=== PATIENT | male | born 1990 | race Caucasian/White ===

== ENCOUNTER 2020-10-03 00:40 | Emergency (ER) | payer SELFPAY ==
[2020-10-03] VITALS (8 sets, daily range): BP systolic 135–141; BP diastolic 74–83; PULSE 79–89; RESP 18; TEMP 38.2; O2SAT 93–97; BMI 39.1
[2020-10-03 01:04] LABS: COVID19 -Nasal RAPID Negative (Negative)
--- NOTE | 2020-10-03 01:13 | ED.SYNCOPE ---
HPI - Syncope General Chief Complaint: Syncope Stated Complaint: headache and abdominal pain Time Seen by Provider: 10/03/20 01:13 Source: patient Mode of arrival: Ambulatory Limitations: no limitations History of Present Illness HPI narrative: The patient has been ill for about 4 days. He Initially had diarrhea. He has since then headache, and sore throat. He denies significant cough. His headache continues. He has fever. He has decreased appetite with abdominal pain. Pain is in the upper abdomen, but no nausea vomiting. There is no pain radiating to his back. He has no chronic GI illness. He has no urinary complaints. He has no rash. He has not been around others with similar complaints. He has not been exposed to COVID. Related Data Home Medications Medication Instructions Recorded Confirmed naproxen sodium 220 mg tablet 220 mg PO PRN #0 09/28/11 Previous Rx's Medication Instructions Recorded amoxicillin 500 mg capsule 500 mg PO TID #30 cap 10/03/20 Allergies Allergy/AdvReac Type Severity Reaction Status Date / Time Sulfa (Sulfonamide Allergy Intermediate DROWZINESS/EYE Verified 10/03/20 01:01 Antibiotics) ISSUES [SULFA (SULFONAMIDE ANTIBIOTICS)] Review of Systems Constitutional Constitutional: Reports as per HPI, Reports fatigue, Reports fever(s), Reports headache(s) and Reports malaise Eyes Eyes: Denies irritation ENT Ears, Nose, Mouth, and Throat: Denies vertigo, Denies dizziness, Reports headache(s), Reports neck pain, Denies sinus pressure and Reports sore throat Cardiovascular Cardiovascular: Denies chest pain, Denies rapid heart rate and Denies pedal edema Respiratory Respiratory: Denies chest congestion, Denies cough and Denies wheezing Gastrointestinal Gastrointestinal: Reports as per HPI Genitourinary Genitourinary: Denies dysuria Musculoskeletal Musculoskeletal: Denies back pain and Reports neck pain Integumentary/Breasts Skin/Breast: Denies rash and Denies sores Neurologic Neurologic: Denies confusion, Denies vertigo, Denies dizziness and Reports headache(s) Psychiatric Psychiatric: Denies confusion Endocrine Endocrine: Reports fatigue Allergic/Immunologic Allergic/Immunologic: Denies wheezing Patient History Social History Smoking Status: Never smoker Smoking Status: Never smoker tobacco type: smokeless tobacco Substance Use Type: does not use Exam Initial Vital Signs Initial Vital Signs: Vital Signs Temperature 100.8 F H 10/03/20 01:01 Pulse Rate 81 10/03/20 01:01 Respiratory Rate 18 10/03/20 01:01 Blood Pressure 141/83 H 10/03/20 01:01 Pulse Oximetry 96 10/03/20 01:01 Const General: cooperative, healthy appearing, well developed and well groomed [facility] Head: normocephalic, atraumatic and other (No palpable sinus tenderness.) Ears: TM's normal bilaterally Nose: nares normal Mouth: oral mucosae normal Throat: abnormal tonsil (Bilateral tonsillar erythema with exudate) Eyes Conjunctivae: conjunctivae normal Pupils: PERRL EOM: EOM intact bilaterally Neck Neck: full ROM, no meningeal signs and No lymphadenopathy Chest Chest: normal inspection of the chest Resp Auscultation: clear to auscultation bilaterally Cardio Rate: regular rate Rhythm: regular rhythm Heart Sounds: S1 normal, S2 normal and no murmurs GI Inspection: normal to inspection Other: Obese. Mild tenderness in the right upper quadrant without distention, guarding rebound. No masses. Normal bowel sounds Back/Spine/Pelvis Back: No CVA tenderness Skin General: No erythema and No pallor Lesions: no lesions Rashes: no rashes Neuro General: patient alert, patient awake, patient oriented x3 and no focal motor deficits Extrem General: normal to inspection, full ROM, no calf tenderness and amputation noted Psych Mental Status: mental status grossly normal Course Orders Ordered: ED Orders 10/03/20 EKG-12 Lead Stat 10/03/20 00:45 COVID19 -Nasal swab/Pre-Proc Stat 10/03/20 00:50 Complete Blood Count AUTO DIFF Stat Comprehensive Metabolic Panel Stat Lipase Stat Discontinued Medications Sodium Chloride (Normal Saline 0.9%) 1,000 mls @ 1,000 mls/hr IV BOLUS ONE Stop: 10/03/20 02:15 Last Admin: 10/03/20 01:55 Dose: 1,000 mls/hr Documented by: SAPPHIRE Vital Signs Vital signs: Vital Signs - 8 hr 10/03/20 01:01 Temperature 100.8 F H Pulse Rate 81 Respiratory Rate 18 Blood Pressure 141/83 H Pulse Oximetry 96 MDM - Syncope Lab Data Result diagrams: 10/03/20 00:50 10/03/20 00:50 Labs: Lab Results 07/12/21 07/12/21 07/12/21 Range/Units 00:45 00:50 00:50 WBC 10.9 (4.5-11.0) X10^3/uL RBC 5.23 (4.5-5.9) X10^6/uL Hgb 15.0 (13.5-17.5) g/dL Hct 45.4 (41-53) % MCV 86.8 (80-100) fL MCH 28.7 (26-34) PG MCHC 33.1 (30-36) % RDW 13.3 (11.6-14.8) % Plt Count 241 (150-400) X10^3/uL Neut % (Auto) 60.6 (50-75) % Lymph % (Auto) 23.3 L (25-40) % [place] % (Auto) 14.4 H (3-14) % Eos % (Auto) 0.4 L (2-4) % Baso % (Auto) 1.3 (0-2) % Neut # (Auto) 6600 (9146-9986) /uL Lymph # (Auto) 2500 (7057-2263) /uL [place] # (Auto) 1600 H (0-900) /uL Eos # (Auto) 0 (0-450) /uL Baso # (Auto) 100 (0-100) /uL Sodium 138 (137-145) mmol/L Potassium 4.2 (3.4-5.1) mmol/L Chloride 103 (98-107) mmol/L Carbon Dioxide 27 (22-32) mmol/L BUN 12 (9-20) mg/dL Creatinine 1.18 (0.66-1.25) mg/dL Estimated GFR > 60.0 (>60) mL/min BUN/Creatinine Ratio 10.2 (6-22) Glucose 108 H (70-100) mg/dL Calcium 9.5 (8.4-10.2) mg/dL Total Bilirubin 0.7 (0.2-1.3) mg/dL AST 36 (17-59) IU/L ALT 72 H (<50) IU/L Alkaline Phosphatase 50 (38-126) U/L Total Protein 7.7 (6.3-8.2) g/dL Albumin 4.4 (3.5-5.0) g/dL Globulin 3.3 (1.7-4.1) g/dL Albumin/Globulin Ratio 1.3 (1.0-2.8) Lipase 78 (23-300) U/L SARS-CoV-2 (PCR) Negative (Negative) Point of Care Testing Rapid Strep A Negative MDM Narrative Medical decision making narrative: Despite being ill for several days, the patient presents with severe sore throat. Tonsils demonstrate erythema and exudate. His workup is otherwise relatively benign. I will treat him with amoxicillin for exudative pharyngitis despite the negative rapid strep. Discharge Plan Departure Patient Disposition: Home Clinical Impression: Exudative pharyngitis Instructions: Sore Throat Activity Restrictions/Additional Instructions: Take Tylenol or Advil as needed for pain and fever. Be sure you are drinking plenty fluids remain well hydrated. Amoxicillin 3 times daily as prescribed. No work for 3 days. If you become worse over the next 3 days you should return to the ER. Prescriptions: New amoxicillin 500 mg capsule 500 mg PO TID Qty: 30 RF: 0 No Action naproxen sodium 220 MG tablet 220 mg PO PRN Qty: 0 RF: 0
[2020-10-03 01:28] LABS: Alanine Aminotransferase 72 IU/L (<50); Albumin 4.4 g/dL (3.5-5.0); Albumin Globulin Ratio 1.3 (1.0-2.8); Alkaline Phosphatase 50 U/L (38-126); Aspartate Aminotransferase 36 IU/L (17-59); BUN Creatinine Ratio 10.2 (6-22); Bilirubin Total 0.7 mg/dL (0.2-1.3); Blood Urea Nitrogen 12 mg/dL (9-20); Calcium 9.5 mg/dL (8.4-10.2); Carbon Dioxide 27 mmol/L (22-32); Chloride 103 mmol/L (98-107); Estimated Glomerular Filt Rate > 60.0 mL/min (>60); Globulin 3.3 g/dL (1.7-4.1); Glucose 108 mg/dL (70-100); HEMOLYSIS < 15 (0-50); Lipase 78 U/L (23-300); Potassium 4.2 mmol/L (3.4-5.1); Sodium 138 mmol/L (137-145); Total Protein 7.7 g/dL (6.3-8.2)
[2020-10-03 01:35] LABS: Add Manual Diff / Slide Review NO; Basophils Absolute Auto 100 /uL (0-100); Basophils Percent Auto 1.3 % (0-2); Eosinophils Absolute Auto 0 /uL (0-450); Eosinophils Percent Auto 0.4 % (2-4); Hematocrit 45.4 % (41-53); Lymphocytes Absolute Auto 2500 /uL (1100-4500); Lymphocytes Percent Auto 23.3 % (25-40); Mean Corpuscular HGB Conc 33.1 % (30-36); Mean Corpuscular Hemoglobin 28.7 PG (26-34); Mean Corpuscular Volume 86.8 fL (80-100); Monocytes Absolute Auto 1600 /uL (0-900); Monocytes Percent Auto 14.4 % (3-14); Neutrophils Absolute Auto 6600 /uL (1500-7000); Neutrophils Percent Auto 60.6 % (50-75); Platelet Count 241 X10^3/uL (150-400); Red Blood Cell Count 5.23 X10^6/uL (4.5-5.9); Red Cell Distribution Width 13.3 % (11.6-14.8); White Blood Cell Count 10.9 X10^3/uL (4.5-11.0)
[2020-10-03] MEDS: SODIUM CHLORIDE 0.9% 1,000 ML 1000 ML IV (01:55)
[2020-10-03] MEDS: AMOXICILLIN 250 MG CAPSULE 500 MG PO (03:55)
== END 2020-10-03 04:25 | disposition home or self-care (01) ==
PROVIDERS: Emergency Provider Emergency Medicine
DX: J02.9 Acute pharyngitis, unspecified (principal); R51.9 Headache, unspecified; Z20.822 Contact with and (suspected) exposure to COVID-19
CPT/HCPCS: 36415; 80053; 83690; 85025; 87070; 87635; 87880; 93005; 93010; 96360; 96361; 99284; C9803

== ENCOUNTER → 2022-10-02 17:19 | Outpatient (ROUT) | payer SELFPAY ==
[2022-10-02 17:26] LABS: Hematocrit 41.2 % (41-53); Mean Corpuscular HGB Conc 33.9 % (30-36); Mean Corpuscular Hemoglobin 29.3 PG (26-34); Mean Corpuscular Volume 86.4 fL (80-100); Platelet Count 261 X10^3/uL (150-400); Red Blood Cell Count 4.77 X10^6/uL (4.5-5.9); Red Cell Distribution Width 13.5 % (11.6-14.8); White Blood Cell Count 8.3 X10^3/uL (4.5-11.0)
[2022-10-02 17:50] LABS: Alanine Aminotransferase 60 IU/L (<50); Albumin 4.1 g/dL (3.5-5.0); Albumin Globulin Ratio 1.3 (1.0-2.8); Alkaline Phosphatase 49 U/L (38-126); Aspartate Aminotransferase 33 IU/L (17-59); BUN Creatinine Ratio 13.7 (6-22); Bilirubin Total 0.6 mg/dL (0.2-1.3); Blood Urea Nitrogen 13 mg/dL (9-20); Carbon Dioxide 26 mmol/L (22-32); Chloride 106 mmol/L (98-107); Estimated Glomerular Filt Rate > 60 mL/min (>60); Globulin 3.1 g/dL (1.7-4.1); Glucose 95 mg/dL (70-100); HEMOLYSIS < 15 (0-50); Potassium 4.1 mmol/L (3.4-5.1); Sodium 141 mmol/L (137-145); Total Protein 7.2 g/dL (6.3-8.2); Uric Acid 8.8 mg/dL (3.5-8.5)
[2022-10-02 18:37] LABS: Thyroid Stimulating Hormone 1.86 uIU/mL (0.47-4.68)
[2022-10-03 05:30] LABS: x Labcorp Estim. Avg Glu (eAG) 123 mg/dL (.); x Labcorp Hemoglobin A1c 5.9 % (4.8-5.6)
== END ==
PROVIDERS: Visit Provider Nurse Practitioner
DX: Z83.3 Family history of diabetes mellitus (principal); Z84.1 Family history of disorders of kidney and ureter
CPT/HCPCS: 80053; 83036; 84443; 84550; 85027

== ENCOUNTER 2023-04-04 21:43 | Emergency (ER) | payer SELFPAY ==
[2023-04-04 22:01] VITALS: BP 142/97; PULSE 86; RESP 16; TEMP 37.1; O2SAT 97; BMI 39.8
[2023-04-04 22:47] LABS: Bacteria Urine Occasional (0-1); Culture Indicated Urine Cult Not Indicated; RBC Urine 1-5/HPF (0-5/HPF); Squamous Epithelial Cell Urine None Seen (0-5/HPF); WBC Urine 0-1/HPF (0-5/HPF)
[2023-04-04] MEDS: SODIUM CHLORIDE 0.9% 1,000 ML 1000 ML IV (22:58)
[2023-04-04 23:05] LABS: Add Manual Diff / Slide Review NO; Basophils Absolute Auto 100 /uL (0-100); Basophils Percent Auto 0.7 % (0-2); Eosinophils Absolute Auto 100 /uL (0-450); Eosinophils Percent Auto 0.6 % (2-4); Hematocrit 44.4 % (41-53); Hemoglobin 14.7 g/dL (13.5-17.5); Lymphocytes Absolute Auto 2100 /uL (1100-4500); Lymphocytes Percent Auto 14.6 % (25-40); Mean Corpuscular HGB Conc 33.2 % (30-36); Mean Corpuscular Hemoglobin 28.6 PG (26-34); Mean Corpuscular Volume 86.1 fL (80-100); Monocytes Absolute Auto 600 /uL (0-900); Monocytes Percent Auto 4.4 % (3-14); Neutrophils Absolute Auto 11700 /uL (1500-7000); Neutrophils Percent Auto 79.7 % (50-75); Platelet Count 282 X10^3/uL (150-400); Red Blood Cell Count 5.16 X10^6/uL (4.5-5.9); Red Cell Distribution Width 13.8 % (11.6-14.8); White Blood Cell Count 14.6 X10^3/uL (4.5-11.0)
[2023-04-04 23:12] LABS: Alanine Aminotransferase 96 IU/L (<50); Albumin 4.6 g/dL (3.5-5.0); Albumin Globulin Ratio 1.4 (1.0-2.8); Alkaline Phosphatase 44 U/L (38-126); Aspartate Aminotransferase 49 IU/L (17-59); BUN Creatinine Ratio 12.1 (6-22); Bilirubin Total 0.5 mg/dL (0.2-1.3); Blood Urea Nitrogen 13 mg/dL (9-20); Calcium 9.8 mg/dL (8.4-10.2); Carbon Dioxide 24 mmol/L (22-32); Chloride 106 mmol/L (98-107); Estimated Glomerular Filt Rate > 60 mL/min (>60); Globulin 3.4 g/dL (1.7-4.1); Glucose 151 mg/dL (70-100); HEMOLYSIS < 15 (0-50); Potassium 4.2 mmol/L (3.4-5.1); Sodium 141 mmol/L (137-145)
--- NOTE | 2023-04-04 23:14 | DI.CT.S_ITS ---
PROCEDURE: CT KIDNEY URETER BLADDER (KUB) INDICATIONS: flank pain TECHNIQUE: Axial sections were acquired from the lung bases to the pubic symphysis. Coronal and sagittal reformats were performed. For radiation dose reduction, the following was used: automated exposure control, adjustment of mA and/or kV according to patient size. COMPARISON: None. FINDINGS: Image quality: Diagnostic Lower chest: No airspace disease or pleural effusion at the lung bases Liver: Hepatic steatosis. Hepatomegaly. No suspicious focal lesions on this noncontrast imaging. Gallbladder and biliary system: Unremarkable, nondilated Pancreas: No ductal dilation Spleen: Nonenlarged Adrenals: No discrete nodules Kidneys: No hydronephrosis bilaterally. There is a 2 mm nonobstructing right intrarenal stone. Vessels and lymph nodes: No abdominal aortic aneurysm or pathologic lymphadenopathy by size criteria Bowel and peritoneum: No evidence of small bowel obstruction. Small strand of soft tissue thickening along the right anal verge (4/61). No pathologic ascites or abscess. The appendix is nondilated. Fecal material in the distal ileum may represent slow transit time through the ileocecal valve. Body wall: Unremarkable Pelvis: Bladder is under distended. No calcified intra bladder stone identified. Prostate is not well evaluated on this study. Bones: No acute or suspicious osseous finding. Degenerative changes. IMPRESSION: No hydronephrosis. Right tiny nonobstructing intrarenal calculus is present. No acute abdominal pelvic abnormality. Trace fluid fluid and soft tissue along the right anal verge, which may represent a fissure or hemorrhoid, less likely fistula, correlate with any symptoms. Hepatic steatosis and hepatomegaly. Other findings as above. Dictated by: Jhon Gale M.D. on 04/04/2023 at 23:29 Approved by: Jhon Gale M.D. on 04/04/2023 at 23:34
[2023-04-05 02:00] VITALS: BP 139/86; PULSE 69; RESP 20; TEMP 36.6; O2SAT 97
--- NOTE | 2023-04-05 02:00 | PC.NURSE ---
Ambulatory with slow but steady gait to exam room from waiting room. Repeat VS noted.
--- NOTE | 2023-04-05 02:15 | ED.GENADULT ---
HPI - General Adult General Chief complaint: Urogenital-Male Stated complaint: thinks kidney stones Time Seen by Provider: 04/05/23 01:49 Source: patient Mode of arrival: Ambulatory History of Present Illness HPI narrative: Otherwise healthy 32-year-old gentleman who was at a basketball game earlier today when he experienced sudden left-sided back pain. Seemed to resolve that has continued to have waxing and waning pain with sensation he needs to void with little urine coming out, associated nausea and vomiting. Related Data Home Medications Medication Instructions Recorded Confirmed naproxen sodium 220 mg tablet 220 mg PO PRN ##0 09/28/11 Previous Rx's Medication Instructions Recorded amoxicillin 500 mg capsule 500 mg PO TID #30 caps 10/03/20 Allergies Allergy/AdvReac Type Severity Reaction Status Date / Time Sulfa (Sulfonamide Allergy Intermediate DROWZINESS/EYE Verified 10/03/20 01:01 Antibiotics) ISSUES [SULFA (SULFONAMIDE ANTIBIOTICS)] Patient History Medical History (Updated 04/05/23 @ 02:39 by Sunitha Tinoco MD) Kidney stones Gout Social History Smoking Status: Never smoker Smoking Status: Never smoker tobacco type: smokeless tobacco Substance Use Type: does not use Exam Initial Vital Signs Initial Vital Signs: Vital Signs Temperature 98.7 F 04/04/23 22:01 Pulse Rate 86 04/04/23 22:01 Respiratory Rate 16 04/04/23 22:01 Blood Pressure 142/97 H 04/04/23 22:01 Pulse Oximetry 97 04/04/23 22:01 Oxygen Delivery Method Room Air 04/04/23 22:01 General: Healthy appearing, in no acute distress. Able to give a complete and coherent history. Well-nourished well-developed HEENT: Moist mucous membranes, normal sclera with reactive pupils, Respiratory: Lungs are clear to auscultation, no wheezing no rales no rhonchi. Full and symmetrical air movement Cardiac: Regular rate and rhythm no murmurs no bruits Abdomen: Soft, he has no thoracic or lumbar mid spine tenderness. He does not have any flank tenderness. There was no tenderness in the right or left lower quadrants. No skin changes. Skin: Warm and dry, no rashes Neurologic: Grossly neurologically intact with no obvious asymmetries or abnormalities Extremities: No trauma, well perfused Psych: Cooperative, appropriate insight and affect Course Orders Ordered: ED Orders 01/11/24 22:05 Urine Microscopic Stat 04/04/23 22:50 CMP [Comprehensive Metabolic Panel] Stat Complete Blood Count AUTO DIFF Stat 04/04/23 23:14 CT kidney ureter bladder (KUB) Stat Ondansetron HCl (Ondansetron 4 Mg Odt) 4 mg SL NOW PRN PRN Reason: Nausea And Vomiting Ondansetron HCl (Ondansetron 4 Mg/2 Ml Inj) 4 mg IV NOW PRN PRN Reason: Nausea And Vomiting Discontinued Medications Sodium Chloride (Normal Saline 0.9%) 1,000 mls @ 1,000 mls/hr IV BOLUS ONE Stop: 04/04/23 23:39 Last Infusion: 04/04/23 23:38 Dose: Infused Documented By: Admin: 04/04/23 22:58 Dose: 1,000 mls/hr Documented By: ZELDA Ketorolac Tromethamine (Ketorolac 30 Mg/Ml Vial) 15 mg IV NOW ONE Stop: 04/04/23 22:41 Vital Signs Vital signs: Vital Signs - 8 hr 04/04/23 22:01 Temperature 98.7 F Pulse Rate 86 Respiratory Rate 16 Blood Pressure 142/97 H Pulse Oximetry 97 Oxygen Delivery Method Room Air Medical Decision Making Lab Data 04/04/23 22:50 04/04/23 22:50 Labs: Lab Results 04/04/23 04/04/23 Range/Units 22:05 22:50 WBC 14.6 H (4.5-11.0) X10^3/uL RBC 5.16 (4.5-5.9) X10^6/uL Hgb 14.7 (13.5-17.5) g/dL Hct 44.4 (41-53) % MCV 86.1 (80-100) fL MCH 28.6 (26-34) PG MCHC 33.2 (30-36) % RDW 13.8 (11.6-14.8) % Plt Count 282 (150-400) X10^3/uL Neut % (Auto) 79.7 H (50-75) % Lymph % (Auto) 14.6 L (25-40) % [place] % (Auto) 4.4 (3-14) % Eos % (Auto) 0.6 L (2-4) % Baso % (Auto) 0.7 (0-2) % Neut # (Auto) 89785 H (2120-7925) /uL Lymph # (Auto) 2100 (7241-3843) /uL [place] # (Auto) 600 (0-900) /uL Eos # (Auto) 100 (0-450) /uL Baso # (Auto) 100 (0-100) /uL Sodium 141 (137-145) mmol/L Potassium 4.2 (3.4-5.1) mmol/L Chloride 106 (98-107) mmol/L Carbon Dioxide 24 (22-32) mmol/L BUN 13 (9-20) mg/dL Creatinine 1.07 (0.66-1.25) mg/dL Estimated GFR > 60 (>60) mL/min BUN/Creatinine Ratio 12.1 (6-22) Glucose 151 H (70-100) mg/dL Calcium 9.8 (8.4-10.2) mg/dL Total Bilirubin 0.5 (0.2-1.3) mg/dL AST 49 (17-59) IU/L ALT 96 H (<50) IU/L Alkaline Phosphatase 44 (38-126) U/L Total Protein 8.0 (6.3-8.2) g/dL Albumin 4.6 (3.5-5.0) g/dL Globulin 3.4 (1.7-4.1) g/dL Albumin/Globulin Ratio 1.4 (1.0-2.8) Urine RBC 1-5/hpf (0-5/HPF) Urine WBC 0-1/hpf (0-5/HPF) Ur Squamous Epith Cells None seen (0-5/HPF) Urine Bacteria Occasional (0-1) (None) Ur Culture Indicated? Cult not indicated Urine Dip Bedside Urine Glucose Negative Bedside Urine Bilirubin - Negative Bedside Urine Ketone - Negative Urine Specific [place] 1.025 Bedside Urine Occult Blood + Bedside Urine pH 5.5 Bedside Urine Protein - Negative Bedside Urine Urobilinogen - Negative Bedside Urine Nitrite - Negative Bedside Urine Leukocytes - Negative Esterase Point of care testing: Urine Dip Bedside Urine Glucose Negative Bedside Urine Bilirubin - Negative Bedside Urine Ketone - Negative Urine Specific [place] 1.025 Bedside Urine Occult Blood + Bedside Urine pH 5.5 Bedside Urine Protein - Negative Bedside Urine Urobilinogen - Negative Bedside Urine Nitrite - Negative Bedside Urine Leukocytes - Negative Esterase MDM Narrative Medical decision making narrative: CC: Left flank pain Complicating co-morbidities: History of gout Data collected from: patient Differential considered: Kidney stone, pyelonephritis, hydronephrosis from external obstruction, low back pain, shingles Exam documented above, pertinent findings include: Exam is quite reassuring. He has no significant flank pain and no pain to suggest diverticulitis or appendicitis. Lab Test results independently reviewed as above. Pertinent findings: CBC: White count elevated at 14.6, no anemia Chemistries: AST is chronically elevated remainder of labs are reassuring Urine shows no red cells no white cells no bacteria Imaging studies independently reviewed: CT scan shows no obvious hydronephrosis or obstructing stone. He does have a small right intrarenal calculus. Treatments: Fluids, pain had resolved as Toradol was offered Discussion: 32-year-old gentleman with severe left flank pain sudden onset associated with acute urgency to void, severe enough that it caused nausea with vomiting. Fairly abrupt cessation of pain and has only mild aching pain at this point. No fevers, diarrhea no abdominal pain. No reproducible pain. Most likely explanation at this point is that he successfully passed a small kidney stone. CT scan does not show hydronephrosis nor signs of infection. Urine does not have red cells, white cells or bacteria. At this time there is no evidence of acute surgical abdomen, no evidence that additional workup or imaging is required and he does not need hospitalization. He will be provided copies of lab work CT and today's note to share with his primary care doctor. Encouraged him to continue the gout diet he currently is trying to follow, it will be helpful with avoiding developing kidney stones as well. Questions are answered and he is safe for discharge Discharge Plan Departure Patient Disposition: Home Clinical Impression: Kidney stone Instructions: DI for Kidney Stones Activity Restrictions/Additional Instructions: Thank you for coming in tonight There are very few things that will cause the abrupt severe pain that you experienced and then resolve. A successfully passed small kidney stone would do that. There was no evidence of infection, additional kidney problems or reason to do additional workup here in the emergency department. Using 400 mg of ibuprofen (2 [id number] pills) and 1 Tylenol every 6 hours can be very helpful in controlling pain. I have given you copies of today's note as well as CT results and lab work to share with her primary care doctor If you find that you are getting worse or develop any new symptoms, please feel free to return to the emergency department for further evaluation. Prescriptions: No Action naproxen sodium 220 MG tablet 220 mg PO PRN Qty: 0 amoxicillin 500 mg capsule 500 mg PO TID Qty: 30 0RF Referrals: Haley Murillo ARNP [Primary Care Provider] - Stand Alone Forms: Patient Portal/API
== END 2023-04-05 02:46 | disposition home or self-care (01) ==
PROVIDERS: Emergency Provider Emergency Medicine; PCP Registered Nurse
DX: N20.0 Calculus of kidney (principal); R11.2 Nausea with vomiting, unspecified
CPT/HCPCS: 74176; 80053; 81003; 81015; 85025; 96360; 99283; 99284